=== PATIENT | male | born 1985 | race Caucasian/White ===

== ENCOUNTER 2017-01-22 01:41 | Emergency (ER) | payer OTHER ==
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
[2017-01-22 02:27] VITALS: BP 133/94; PULSE 121; TEMP 98.3; BMI 33.2
== END 2017-01-22 02:45 | disposition home or self-care (01) ==
LOC: JER 01:41
DX: M54.5 Low back pain (principal); V48.0XXA Car driver injured in noncollision transport accident in nontraffic accident, initial encounter; Y93.89 Activity, other specified; Y92.410 Unspecified street and highway as the place of occurrence of the external cause; I10 Essential (primary) hypertension; Z90.5 Acquired absence of kidney
CPT/HCPCS: 99281-25